=== PATIENT | female | born 1960 | race Caucasian/White ===

== ENCOUNTER 2017-08-13 08:18 | Outpatient (CLI) | payer OTHER | END 2017-08-13 08:19 | disposition home or self-care (01) | LOC: BICULT 08:18 | PROVIDERS: ATTEND Internal Medicine Gastroenterology | DX: R93.3 Abnormal findings on diagnostic imaging of other parts of digestive tract (principal) | CPT/HCPCS: 76700 ==

== ENCOUNTER 2018-08-03 10:13 | Outpatient (CLI) | payer OTHER ==
--- NOTE | 2018-08-03 12:10 | ULT ---
ABDOMINAL ULTRASOUND: DATE: 08/03/2018. COMPARISON: 08/13/2017. HISTORY: Reevaluate hepatic lesion suggesting a hemangioma. TECHNIQUE: Multiplanar rowland scale sonographic imaging of the abdomen provided. FINDINGS: Imaged IVC and aorta grossly unremarkable as is imaged pancreas. Pancreatic tail is obscured by giorgio l gas. There is a stable tiny echogenic lesion within the hepatic parenchyma measuring approximately 0.6 x 1 .1 x 0.3 cm. On prior imaging, the lesion measured up to 6 x 5 x 7 mm. Thus, its greatest measureme nt has increased slightly when compared to the prior examination. However, this is felt to likely be technical in nature, possibly on the basis of obliquity. No new hepatic lesion is noted. No gallbladder wall thickening or pericholecystic fluid. No gallstones are noted. Sonographic Tam y's sign is negative. CBD measures 3 mm, within normal limits. The right kidney measures 10.4 cm cr aniocaudal dimension and the left kidney measures 10.2 cm in craniocaudal dimension. No renal mass, hydronephrosis, or stone noted on either side. The spleen is obscured by bowel gas and measures up t o approximately 6-7 cm, within normal limits. IMPRESSION: Small echogenic lesion within the hepatic parenchyma near the gallbladder fossa as detailed above. I t measures slightly greater than on prior imaging as detailed above. This apparent difference in siz e may be technical nature. True interval growth is doubtful. POS: [facility]
== END 2018-08-03 10:14 | disposition home or self-care (01) ==
LOC: SCSULT 10:13
PROVIDERS: ATTEND Internal Medicine Gastroenterology
DX: D18.03 Hemangioma of intra-abdominal structures (principal); K82.9 Disease of gallbladder, unspecified
CPT/HCPCS: 76700